=== PATIENT | male | born 1980 | race Caucasian/White ===

== ENCOUNTER 2019-09-21 16:46 | Emergency (ER) | payer SELFPAY ==
--- NOTE | 2019-09-21 17:30 | NUR ---
NO ANSWER IN ER LOBBY
--- NOTE | 2019-09-21 18:05 | NUR ---
NO ANSWER IN ER LOBBY
== END 2019-09-21 17:30 | disposition left against medical advice (07) ==
LOC: MED 16:46
DX: Z53.21 Procedure and treatment not carried out due to patient leaving prior to being seen by health care provider (principal)

== ENCOUNTER 2019-09-22 20:39 | Emergency (ER) | payer MEDICAID ==
[~2019-09-22] VITALS: Ht 175.3 cm; Wt 77.1 kg
[2019-09-22 20:50] VITALS: BP 124/90
--- NOTE | 2019-09-22 20:53 | NUR ---
TO LOBBY A/W BED AMBULATORY
--- NOTE | 2019-09-22 23:03 | NUR ---
PT AMBULATED TO BED #2
--- NOTE | 2019-09-22 23:17 | NUR ---
38 Y/O MALE PRESENTS TO ED, C/O CELLULITIS ON ABDOMEN. PT STATES CELLULITIS PRESENTED 5 DAYS AGO AND WORSENING. PT STATES PINK DRAINAGE WHEN HE POPPED WOUND OPEN. PT STATES PAIN IS 9/10. DENIES TAKING ANY MEDICATIONS FOR PAIN. NO FEVER NOTED DURING ASSESSMENT. PT VSS. ERMD AWARE. WILL CONTINUE TO MONITOR.
[2019-09-22] MEDS ORDERED: LIDOCAINE 2% 1000 MG/50 ML VIAL INJ ONE (23:35)
[2019-09-23 00:22] VITALS: BP 123/79
--- NOTE | 2019-09-23 00:22 | NUR ---
PT DISCHARGED WITH PAPERWORK. EDUCATED PT REGARDING MEDICATION AND D/C DIAGNOSIS. PT VERBALIZED UNDERSTANDING. TOLD PT TO FOLLOW UP WITH PCP AND WHEN TO RETURN TO ED. PT AT STABLE CONDITION. ALL QUESTIONS ANSWERED.
== END 2019-09-23 00:22 | disposition home or self-care (01) ==
LOC: MED 20:39
DX: L02.211 Cutaneous abscess of abdominal wall (principal)
CPT/HCPCS: 10060; 99283; J2001

== ENCOUNTER 2019-09-24 15:42 | Emergency (ER) | payer MEDICAID ==
[~2019-09-24] VITALS: Ht 175.3 cm; Wt 79.4 kg
[2019-09-24 15:52] VITALS: BP 145/89
--- NOTE | 2019-09-24 15:56 | NUR ---
WAIT AT LOBBY.
--- NOTE | 2019-09-24 17:23 | NUR ---
PT AMBULATED TO ER BED 06
--- NOTE | 2019-09-24 17:32 | NUR ---
CAME HERE FOR WOUND CHECK. ABSCESS OVER MID ABDOMEN & HAD I&D WITH PACKING ON 09/22/19. STATES SWELLING HAS DECREASED. STILL BLEEDING FROM SITE. PAIN INCREASED COMPARED TO BEFORE BUT TOLERABLE. MED HX: DENIES
--- NOTE | 2019-09-24 17:53 | NUR ---
KENNA CHAMPAGNE AT BEDSIDE.
[2019-09-24] MEDS ORDERED: BACITRACIN OINT 500 UNITS/GM PKT TP ONE (18:15)
--- NOTE | 2019-09-24 18:17 | NUR ---
STAN PIRES, KENNA CHAMPAGNE NOTIFIED.
== END 2019-09-24 18:17 | disposition left against medical advice (07) ==
LOC: MED 15:42
DX: Z48.01 Encounter for change or removal of surgical wound dressing (principal)
CPT/HCPCS: 99283